=== PATIENT | female | born 1985 | race Two or more races ===

== ENCOUNTER 2020-04-22 18:54 | Inpatient (IN) | payer MEDICAID, OTHER ==
[~2020-04-22] VITALS: Ht 157.5 cm; Wt 55.8 kg
[~2020-04-22 18:54] MED LIST: BUPR100 PO; ESCI20TA87 PO; TOPI25 PO
[2020-04-22] MEDS ORDERED: QUEtiapine FUMARATE 100 MG TABLET PO PRN (19:30)
[2020-04-22] MEDS ORDERED: TUBERCULIN, PURIFIED PROTEIN DERIVATIVE 5 TU/0.1 ML SYRINGE ID ONE (19:30)
[2020-04-22] MEDS ORDERED: GuaiFENesin/D-METHORPHAN [SUGAR-FREE] 200-20MG/10 ML SYRUP UDCUP PO PRN (19:30)
[2020-04-22] MEDS ORDERED: PROMETHAZINE HCL 25 MG TABLET PO PRN (19:30)
[2020-04-22] MEDS ORDERED: HydrOXYzine PAMOATE 50 MG CAPSULE PO PRN (19:30)
[2020-04-22] MEDS ORDERED: MAGNESIUM HYDROXIDE SUSPENSION 30 ML UDCUP PO PRN (19:30)
[2020-04-22] MEDS ORDERED: ZOLPIDEM TARTRATE 10 MG TABLET PO PRN (19:30)
[2020-04-22] MEDS ORDERED: MAG HYDROX/AL HYDROX/SIMETH ES 30 ML SUSPENSION UDCUP PO PRN (19:30)
[2020-04-22] MEDS ORDERED: LOPERAMIDE HCL 2 MG CAPSULE PO PRN (19:30)
[2020-04-22 19:48] VITALS: BP 107/72
[2020-04-22] MEDS: THIAMINE 100 MG TABLET PO SCH (20:18)
[2020-04-22] MEDS: LORazepam 2 MG TABLET PO PRN (20:18)
[2020-04-22 21:03] VITALS: BP 107/72
[2020-04-22] MEDS: TOPIRAMATE 25 MG TABLET PO SCH (21:30)
[2020-04-22] MEDS: BuPROPion HCL 150 MG SR TABLET PO SCH (21:30)
[2020-04-23] MEDS: ACETAMINOPHEN 325 MG TABLET PO PRN ×2 (04:20→12:28)
[2020-04-23 06:26] LABS: BASOPHILS % (AUTO) 1.3 % (0.0-2.0); EOSINOPHILS % (AUTO) 1.4 % (1.0-6.0); HEMATOCRIT 24.2 % (36-46); HEMOGLOBIN 7.4 g/dL (12.0-16.0); LYMPHOCYTES % (AUTO) 27.6 % (22.0-44.0); MEAN CORPUSCULAR HEMOGLOBIN 18.1 pg (26.0-34.0); MEAN CORPUSCULAR HGB CONC 30.6 G/dL (31.0-37.0); MEAN CORPUSCULAR VOLUME 59 fL (80-100); MONOCYTES # (AUTO) 0.6 K/uL (0.1-1.0); MONOCYTES % (AUTO) 8.4 % (2.0-9.0); NEUTROPHILS # (AUTO) 4.4 K/uL (1.8-7.7); NEUTROPHILS % (AUTO) 61.3 % (40.0-70.0); PLATELET COUNT (AUTO) 278 K/uL (150-450); RED BLOOD CELL COUNT(AUTO) 4.09 MIL/uL (4.00-5.20); RED CELL DISTRIBUTION WIDTH 26.4 % (11.5-14.5)
[2020-04-23 07:14] LABS: FREE T4 (FREE THYROXINE) 0.84 ng/dL (0.76-1.46); HCG,QUANTITATIVE < 1 mIU/mL (0-6); THYROID STIMULATING HORMONE 2.72 uIU/mL (0.36-3.74)
[2020-04-23] MEDS ORDERED: MAG HYDROX/AL HYDROX/SIMETH ES 30 ML SUSPENSION UDCUP PO PRN (08:30)
[2020-04-23] MEDS ORDERED: DOCUSATE SODIUM 100 MG CAPSULE PO PRN (08:30)
[2020-04-23] MEDS ORDERED: NICOTINE 14 MG/24 HOUR PATCH TD PRN (08:30)
[2020-04-23] MEDS ORDERED: PETROLATUM,WHITE 28 GM JELLY TP PRN (08:30)
[2020-04-23] MEDS ORDERED: ALBUTEROL SULFATE HFA 90 MCG/PUFF 8 GM INHALER IH PRN (08:30)
[2020-04-23] MEDS ORDERED: LOPERAMIDE HCL 2 MG CAPSULE PO PRN (08:30)
[2020-04-23] MEDS ORDERED: ONDANSETRON HCL 4 MG TABLET PO PRN (08:30)
[2020-04-23] MEDS ORDERED: GuaiFENesin/D-METHORPHAN [SUGAR-FREE] 200-20MG/10 ML SYRUP UDCUP PO PRN (08:30)
[2020-04-23] MEDS ORDERED: ACETAMINOPHEN 325 MG TABLET PO PRN (08:30)
[2020-04-23] MEDS ORDERED: CloNIDine HCL 0.1 MG TABLET PO PRN (08:30)
[2020-04-23] MEDS ORDERED: MAGNESIUM HYDROXIDE SUSPENSION 30 ML UDCUP PO PRN (08:30)
[2020-04-23 08:43] VITALS: BP 100/61
[2020-04-23] MEDS: ESCITALOPRAM OXALATE 20 MG TABLET PO SCH (09:48)
[2020-04-23] MEDS: TOPIRAMATE 25 MG TABLET PO SCH ×4 (09:48→20:07)
[2020-04-23] MEDS: BuPROPion HCL 150 MG SR TABLET PO SCH ×2 (09:49→16:39)
[2020-04-23] MEDS: NALTREXONE HCL 50 MG TABLET PO SCH (09:49)
[2020-04-23] MEDS: THIAMINE 100 MG TABLET PO SCH ×2 (09:49→16:39)
[2020-04-23] MEDS: FOLIC ACID 1 MG TABLET PO SCH (09:49)
[2020-04-23] MEDS: MULTIVITAMINS WITH MINERALS, THERAPEUTIC TABLET PO SCH (09:49)
[2020-04-23] MEDS: LORazepam 2 MG TABLET PO PRN ×2 (12:28→19:04)
[2020-04-23 16:01] VITALS: BP 116/63
[2020-04-23] MEDS ORDERED: ESCI20TA87 PO (18:50)
[2020-04-23] MEDS ORDERED: NALT50TA PO (18:50)
[2020-04-23] MEDS ORDERED: BUPR150SR PO (18:50)
[2020-04-23] MEDS ORDERED: TOPI25 PO (18:50)
[2020-04-23 19:02] VITALS: BP 114/70
[2020-04-24] MEDS ORDERED: FERROUS SULFATE 325 MG EC TABLET PO SCH (07:30)
[2020-04-24 08:05] VITALS: BP 107/74
[2020-04-24] MEDS: ESCITALOPRAM OXALATE 20 MG TABLET PO SCH (08:13)
[2020-04-24] MEDS: FOLIC ACID 1 MG TABLET PO SCH (08:13)
[2020-04-24] MEDS: TOPIRAMATE 25 MG TABLET PO SCH (08:13)
[2020-04-24] MEDS: MULTIVITAMINS WITH MINERALS, THERAPEUTIC TABLET PO SCH (08:13)
[2020-04-24] MEDS: NALTREXONE HCL 50 MG TABLET PO SCH (08:13)
[2020-04-24] MEDS: THIAMINE 100 MG TABLET PO SCH (08:13)
[2020-04-24] MEDS ORDERED: BuPROPion HCL 100 MG SR TABLET PO SCH (09:00)
== END 2020-04-24 09:00 | disposition home or self-care (01) | DRG 885 ==
LOC: EDSTATUS 18:56
PROVIDERS: ADMIT Psychiatry & Neurology Psychiatry; ATTEND Psychiatry & Neurology Psychiatry
DX: F33.2 Major depressive disorder, recurrent severe without psychotic features (principal); F41.9 Anxiety disorder, unspecified; Z91.410 Personal history of adult physical and sexual abuse; D64.9 Anemia, unspecified; N92.0 Excessive and frequent menstruation with regular cycle; N80.9 Endometriosis, unspecified; Z91.19 Patient's noncompliance with other medical treatment and regimen; F12.90 Cannabis use, unspecified, uncomplicated; G43.909 Migraine, unspecified, not intractable, without status migrainosus; Z79.899 Other long term (current) drug therapy; Z88.8 Allergy status to other drugs, medicaments and biological substances; F10.10 Alcohol abuse, uncomplicated; Y90.9 Presence of alcohol in blood, level not specified
CPT/HCPCS: 84439; 84443; 86592; 87081